=== PATIENT | female | born 1995 | race American Indian/Alaskan Native ===

== ENCOUNTER 2017-10-08 15:01 | Emergency (ER) | payer SELFPAY ==
[2017-10-08 15:33] VITALS: BP 129/86; PULSE 67; RESP 20; TEMP 99.3; O2SAT 100
--- NOTE | 2017-10-08 16:01 | C.PDOC ---
History Of Present Illness 21 y/o female presents to the ER complaining of clogging to left ear which has been present for the past 4 days. Patient states that she had a similar episode and she was found to have excessive wax in her ear at the time. Patient reports that she has a mild headache. Otherwise, she denies having fever, chills, nausea , and vomiting. Time Seen by Provider: 10/08/17 15:55 Chief Complaint (Nursing): ENT Problem History Per: Patient History/Exam Limitations: None Onset/Duration Of Symptoms: Days Current Symptoms Are (Timing): Still Present Severity: Moderate Past Medical History Reviewed: Historical Data, Nursing Documentation, Vital Signs Vital Signs: Last Vital Signs Temp 99.3 F 10/08/17 15:30 Pulse 67 10/08/17 15:30 Resp 20 10/08/17 15:30 BP 129/86 10/08/17 15:30 Pulse Ox 100 10/08/17 18:42 - Medical History PMH: No Chronic Diseases Other Surgeries: Hx of surgeries Family History: States: No Known Family Hx - Social History Hx Alcohol Use: Yes Hx Substance Use: No - Immunization History Hx Tetanus Toxoid Vaccination: No Hx Influenza Vaccination: No Hx Pneumococcal Vaccination: No Review Of Systems Except As Marked, All Systems Reviewed And Found Negative. Constitutional: Negative for: Fever, Chills ENT: Positive for: Other Physical Exam - Physical Exam Appears: Non-toxic, No Acute Distress Skin: Normal Color, Warm, Dry Head: Atraumatic, Normacephalic Eye(s): bilateral: Normal Inspection Ear(s): Left: Other (some wax in TM canal), Right: Normal Neck: Supple Chest: Symmetrical Cardiovascular: Rhythm Regular Respiratory: Normal Breath Sounds, No Rales, No Rhonchi, No Wheezing Neurological/Psych: Oriented x3, Normal Speech ED Course And Treatment O2 Sat by Pulse Oximetry: 100 (RA) Pulse Ox Interpretation: Normal Medical Decision Making Medical Decision Making: Patient has been discharged with Debrox ear drops for cerumen to the left ear canal. Disposition - Disposition Referrals: Kamlesh Cortez MD [Staff Provider] - Disposition: HOME/ ROUTINE Disposition Time: 15:59 Condition: STABLE Prescriptions: Carbamide Peroxide [Debrox Ear Drops] 4 drop AU BID #1 bottle Instructions: Ear Wax Impaction (DC) Forms: [employer] ([place]), General Discharge Instructions - POA Present On Arrival: None - Clinical Impression Clinical Impression: Excessive cerumen in left ear canal - Scribe Statement The provider has reviewed the documentation as recorded by the Scribe Sonw Glass Provider Attestation All medical record entries made by the Scribe were at my direction and personally dictated by me. I have reviewed the chart and agree that the record accurately reflects my personal performance of the history, physical exam, medical decision making, and the department course for this patient. I have also personally directed, reviewed, and agree with the discharge instructions and disposition.
== END 2017-10-08 16:13 | disposition home or self-care (01) ==
LOC: C.ER 15:01
DX: H61.22 Impacted cerumen, left ear (principal)